=== PATIENT | male | born 1960 | race Caucasian/White ===

== ENCOUNTER 2021-03-13 15:31 | Emergency (ER) | payer BC ==
[2021-03-13 18:23] LABS: Urine Blood Negative (Negative); Urine Glucose Negative (Negative); Urine Protein Negative (Negative); Urine pH 6.5 (5.0-7.0)
--- NOTE | 2021-03-13 18:58 | RAD REPORT ---
EXAM DESCRIPTION: CT - Stone Protocol - 03/13/2021 6:45 pm CLINICAL HISTORY: Flank pain. FLANK PAIN COMPARISON: No comparisons TECHNIQUE: Axial images were obtained without oral or IV contrast. Lack of contrast limits solid org an and vascular assessment. The [id number] spans the entirety of the system partially obscuring uppermost abdomen and lung bases. Coronal reformatted images were obtained and reviewed. All CT scans are performed using dose optimization technique as appropriate and may include automated exposure control or mA/KV adjustment according to patient size. FINDINGS: The lower lung de luna are clear. Advanced fatty liver is present with heterogenous appearance to the liver parenchyma.Spleen is unrema rkable. The pancreas and adrenal glands are normal. No pathologic lymphadenopathy in the abdomen or p delroy. No urinary tract stones or obstructive uropathy. No bowel obstruction, free air, free fluid or abscess. Sigmoid diverticulosis coli is present with mi ld reticulation of surrounding suggesting early mild diverticulitis. Normal appendix noted.Moderate f at containing umbilical hernia. No significant bony abnormality. IMPRESSION: No urinary tract stones or obstructive uropathy. Early/mild sigmoid diverticulitis is suspected. Advanced fatty liver with heterogenous liver parenchymal pattern. Moderate fat containing umbilical hernia.
--- NOTE | 2021-03-13 19:11 | EDPHYS ---
Physician Documentation [facility] Name: Easton Craft Age: 60 yrs Sex: Male : 1960 Arrival Date: 03/13/2021 Time: 15:33 Bed 23 Private MD: Jose Fontana H ED Physician Leo Walker HPI: 03/13 18:58 This 60 yrs old Male presents to ER via Wheelchair with complaints of Flank kb Pain, Possible Kidney Stone. 18:58 The patient has not recently seen a physician. kb 18:58 The patient presents with pain that is acute, with no known mechanism of injury. The kb symptoms are located in the right low back. Onset: The symptoms/episode began/occurred this morning. The pain does not radiate. Associated signs and symptoms: The patient has no apparent associated signs or symptoms. The problem was sustained without known cause. Modifying factors: The patient symptoms are alleviated by nothing, the patient symptoms are aggravated by any movement. Severity of symptoms: At their worst the symptoms were moderate, in the emergency department the symptoms are unchanged. The patient has not experienced similar symptoms in the past. Historical: - Allergies: 15:42 No Known Allergies; ll1 - PMHx: 15:42 Hypertension; Asthma; ll1 - PSHx: 15:42 hernia repair; ll1 - Immunization history:: Client reports receiving the Sabino \\T\\ Sabino single-dose vaccine. Flu vaccine status is unknown. - Social history:: Smoking status: Patient denies any tobacco usage or history of. ROS: 18:57 Constitutional: Negative for fever, chills, and weight loss. kb 18:57 Back: Positive for pain at rest, pain with movement, of the right low back. 18:57 All other systems are negative. Exam: 18:58 Constitutional: This is a well developed, well nourished patient who is awake, alert, kb and in no acute distress. Head/Face: Normocephalic, atraumatic. ENT: Moist Mucous membranes Respiratory: Respirations even and unlabored. No increased work of breathing, no retractions or nasal flaring. Skin: Warm, dry with normal turgor. Normal color. MS/ Extremity: Pulses equal, no cyanosis. Neurovascular intact. Full, normal range of motion. Neuro: Awake and alert, GCS 15, oriented to person, place, time, and situation. Moves all extremities. Normal gait. Psych: Awake, alert, with orientation to person, place and time. Behavior, mood, and affect are within normal limits. 18:58 Back: pain, that is moderate, of the right low back, ROM is painful, normal spinal alignment noted, CVA tenderness, is absent, vertebral tenderness, is not appreciated. Vital Signs: 15:40 Pulse 65; Resp 18; Pulse Ox 98% ; Weight 125.19 kg; Height 5 ft. 9 in. (175.26 cm); ll1 Pain 9/10; 15:43 BP 150 / 79; Temp 98.9; ll1 19:37 BP 148 / 84; Pulse 60; Resp 16; Pulse Ox 98% ; Pain 6/10; ch5 15:40 Body Mass Index 40.76 (125.19 kg, 175.26 cm) ll1 MDM: 18:09 Patient medically screened. amos 18:57 Data reviewed: vital signs, nurses notes. Data interpreted: Pulse oximetry: on room air kb is 98 %. Interpretation: normal. 19:10 Counseling: I had a detailed discussion with the patient and/or guardian regarding: the kb historical points, exam findings, and any diagnostic results supporting the discharge/admit diagnosis, lab results, radiology results, the need for outpatient follow up, a family practitioner, to return to the emergency department if symptoms worsen or persist or if there are any questions or concerns that arise at home. 19:11 ED course: Pt educated on diverticulitis finding. Pt states "No, my guts are good. I am kb good in that department." Pt educated to start antibiotics if he starts having abd pain, diarrhea, fever, etc. Educated to follow up with pcp. 03/13 18:23 Order name: Urine Dipstick-Ancillary EDMS 03/13 18:24 Order name: CT Stone Protocol; Complete Time: 19:05 kb Administered Medications: 18:56 Drug: [place] (HYDROcodone-acetaminophen) 10 mg-325 mg 1 tabs Route: PO; ch5 Disposition: 03/14 08:46 Co-signature as Attending Physician, Leo Walker MD I agree with the assessment and amos plan of care. Disposition Summary: 03/13/21 19:10 Discharge Ordered Location: Home kb Condition: Stable kb Diagnosis - Low back pain kb Followup: kb - With: Emergency Department - When: As needed - Reason: Worsening of condition Followup: kb - With: Private Physician - When: 2 - 3 days - Reason: Recheck today's complaints, Continuance of care, Re-evaluation by your physician Discharge Instructions: - Musculoskeletal Pain kb - Diverticulitis, [id number] kb - Discharge Summary Sheet ch5 - Back Injury Prevention, [id number] kb Forms: - SBAR form ch5 - Medication Reconciliation Form kb - Thank You Letter kb - Antibiotic Education kb - Prescription Opioid Use kb Prescriptions: - Cipro 500 mg Oral Tablet - take 1 tablet by ORAL route every 12 hours for 10 days; 20 tablet; Refills: 0, kb Product Selection Permitted - Flagyl 500 mg Oral Tablet - take 1 tablet by ORAL route every 8 hours for 10 days; 30 tablet; Refills: 0, kb Product Selection Permitted - Cyclobenzaprine 10 mg Oral Tablet - take 1 tablet by ORAL route every 8 hours As needed; 21 tablet; Refills: 0, kb Product Selection Permitted - Diclofenac Sodium 75 mg Oral tablet,delayed release (DR/EC) - take 1 tablet by ORAL route 2 times per day As needed; 30 tablet; Refills: 0, kb Product Selection Permitted Signatures: Dispatcher [employer] Shelia Benoit, [employer]-C [employer]-Leo Donaldson MD MD cha Lewis, Lynsay, RN RN ll1 Dejuan Kauffman RN RN ch5
--- NOTE | 2021-03-13 19:11 | ER ---
Nurse's Notes [facility] Name: Easton Craft Age: 60 yrs Sex: Male : 1960 Arrival Date: 03/13/2021 Time: 15:33 Bed 23 Private MD: Jose Fontana H Diagnosis: Low back pain Presentation: 03/13 15:40 Chief complaint: Patient states: R lower back pain since last night. No N/V/D, no ll1 dysuria. Coronavirus screen: Vaccine status: Patient reports receiving the 1st dose of the Covid vaccine. Client denies travel out of the [place] in the last 14 days. At this time, the client does not indicate any symptoms associated with coronavirus-19. Ebola Screen: Patient denies travel to an Ebola-affected area in the 21 days before illness onset. Initial Sepsis Screen: Does the patient meet any 2 criteria? No. Patient's initial sepsis screen is negative. Does the patient have a suspected source of infection? Yes: Other: low back pain. Risk Assessment: Do you want to hurt yourself or someone else? Patient reports no desire to harm self or others. Onset of symptoms was March 12, 2021. 15:40 Method Of Arrival: Wheelchair ll 15:40 Acuity: AMANDO 3 ll1 Triage Assessment: 19:37 General: Appears in no apparent distress. Behavior is calm, cooperative, appropriate ch5 for age. Historical: - Allergies: 15:42 No Known Allergies; ll1 - PMHx: 15:42 Hypertension; Asthma; ll1 - PSHx: 15:42 hernia repair; ll1 - Immunization history:: Client reports receiving the Sabino \T\ Sabino single-dose vaccine. Flu vaccine status is unknown. - Social history:: Smoking status: Patient denies any tobacco usage or history of. Screenin:36 Abuse screen: Denies threats or abuse. Denies injuries from another. Nutritional ch5 screening: No deficits noted. Tuberculosis screening: No symptoms or risk factors identified. Fall Risk None identified. Assessment: 18:36 Reassessment: Patient appears in no apparent distress at this time. No changes from ch5 previously documented assessment. Pain: Complains of pain in back. GI: No deficits noted. 18:37 Reassessment: Pt to CT by wheelchair. 5 19:37 GI: Bowel sounds present X 4 quads. Abd is soft Abd is non tender. ch5 Vital Signs: 15:40 Pulse 65; Resp 18; Pulse Ox 98% ; Weight 125.19 kg; Height 5 ft. 9 in. (175.26 cm); ll1 Pain 9/10; 15:43 BP 150 / 79; Temp 98.9; ll1 19:37 BP 148 / 84; Pulse 60; Resp 16; Pulse Ox 98% ; Pain 6/10; ch5 15:40 Body Mass Index 40.76 (125.19 kg, 175.26 cm) ll1 ED Course: 15:33 Patient arrived in ED. as 15:33 Jose Fontana DO is Private Physician. as 15:42 Triage completed. ll1 15:43 Arm band placed on. ll1 18:09 Leo Walker MD is Attending Physician. [facility] 18:12 Shelia Marquez FNP-C is [facility]. kb 18:36 Dejuan Kauffman, RN is Primary Nurse. ch5 18:36 Bed in low position. Call light in reach. Side rails up X 1. ch5 18:36 No provider procedures requiring assistance completed. ch5 18:45 CT Stone Protocol In Process Unspecified. EDMS 18:56 Urine Dipstick-Ancillary Sent. ch5 19:37 Patient did not have IV access during this emergency room visit. intact, bleeding ch5 controlled, No redness/swelling at site. Administered Medications: 18:56 Drug: [place] (HYDROcodone-acetaminophen) 10 mg-325 mg 1 tabs Route: PO; 5 Outcome: 19:10 Discharge ordered by . kb 19:37 Discharged to home via wheelchair. ch5 19:37 Condition: stable 19:37 Discharge instructions given to patient, Instructed on discharge instructions, follow up and referral plans. 19:38 Patient left the ED. 5 Signatures: Dispatcher [employer] EDMS Shelia Marquez FNP-C FNP-Leo Donaldson MD MD cha Martinez, Amelia as Lewis, Lynsay, JOLIE RN 1 Dejuan Kauffman, JOLIE RN 5
[2021-03-13] MEDS ORDERED: HYDROCODONE/APAP 10/325 TAB ONE (19:18)
[2021-03-13 19:46] VITALS: TEMP 98.9
[2021-03-13 19:47] VITALS: O2SAT 98
[2021-03-13 19:49] VITALS: BP 148/84
== END 2021-03-13 19:38 | disposition home or self-care (01) ==
LOC: ER 15:31
DX: M54.5 Low back pain (principal); I10 Essential (primary) hypertension
CPT/HCPCS: 74176; 76377; 81003; 99283